=== PATIENT | male | born 1950 | race Native Hawaiian/Other Pacific Islander ===

== ENCOUNTER 2021-02-24 10:21 | Outpatient (CLI) | payer OTHER | END 2021-02-24 19:12 | disposition home or self-care (01) | LOC: CT 10:21 | PROVIDERS: ATTEND Nurse Practitioner Family | DX: F02.80 Dementia in other diseases classified elsewhere, unspecified severity, without behavioral disturbance, psychotic disturbance, mood disturbance, and anxiety (principal) | CPT/HCPCS: 36415; 82565; 84520; Q9963 ==